=== PATIENT | male | born 1980 | race Two or more races ===

== ENCOUNTER 2022-01-16 11:24 | Inpatient (IN) | payer MEDICAID ==
[~2022-01-16] VITALS: Ht 175.3 cm; Wt 77.0 kg
[2022-01-16] MEDS ORDERED: LACTATED RINGER'S 1,000 ML IV ONE (11:45)
[2022-01-16] MEDS ORDERED: KETOROLAC TROMETH 30 MG/ML 1ML VIAL IV ONE (11:45)
[2022-01-16 12:28] LABS: Urine Bacteria NONE SEEN /hpf (None Seen); Urine Blood Negative /uL (Negative); Urine Mucus FEW (None Seen); Urine Specific Gravity 1.009 (1.001-1.035); Urine WBC 2 /hpf (0 - 3)
[2022-01-16 12:30] LABS: Basophils # (auto) 0.1 10 ^3/uL (0-0.2); Basophils % (auto) 0.9 % (0.0-2.0); Eosinophils # (auto) 0.2 10 ^3/uL (0-0.8); Eosinophils % (auto) 2.5 % (0.0-7.0); Hematocrit 45.6 % (41.0-53.0); Hemoglobin 15.7 g/dL (13.5-17.5); Lymphocytes # (auto) 1.5 10 ^3/uL (0.4-5.4); Lymphocytes % (auto) 16.8 % (10.0-50.0); Mean Corpuscular Hemoglobin 30.5 pg (28.0-32.0); Mean Corpuscular Hgb Conc. 34.4 g/dL (32.0-36.0); Mean Corpuscular Volume 88.6 fL (80.0-100.0); Monocytes # (auto) 0.7 10 ^3/uL (0-1.3); Monocytes % (auto) 7.7 % (0.0-12.0); Neutrophils # (auto) 6.4 10 ^3/uL (1.6-8.6); Neutrophils % (auto) 72.1 % (37.0-80.0); Nucleated Red Blood Cells % 0.1 %; Red Blood Cells 5.15 10^6/uL (4.5-5.90); Red Cell Distribution Width 13.2 % (11.8-14.3); White Blood Cell 8.9 10^3/uL (4.4-10.8)
[2022-01-16 12:49] LABS: Albumin 4.2 g/dL (3.4-5.0); Calcium 9.2 mg/dL (8.5-10.1); Potassium 4.2 mmol/L (3.5-5.1)
[2022-01-16 12:52] LABS: BUN/Creatinine Ratio 10.1
[2022-01-16 12:55] LABS: Bilirubin, Total 0.4 mg/dL (0.2-1.0); Total Protein 8.4 g/dL (6.4-8.2)
[2022-01-16] MEDS ORDERED: NITROGLYCERIN 0.4 MG SL TAB SL PRN (19:15)
[2022-01-16] MEDS ORDERED: MORPHINE SULFATE INJECTION 2 MG/ML SYRG IV PRN (19:15)
[2022-01-16] MEDS ORDERED: MORPHINE SULFATE 4 MG/ML SYR/VIAL IV PRN (19:15)
[2022-01-16] MEDS ORDERED: SODIUM CHLORIDE 0.9% 1,000 ML IV ONE (19:15)
[2022-01-16] MEDS ORDERED: FUROSEMIDE 20 MG/2 ML VIAL IV ONE (19:15)
[2022-01-16] MEDS ORDERED: MANNITOL 20% SOLN 100 gm/500ml 200 ML IV ONE ×2 (19:15→23:00)
[2022-01-16] MEDS: PROMETHAZINE HCL 25 MG/ML 1ML IV PRN (21:36)
[2022-01-16] MEDS: SODIUM CHLORIDE 0.9% 1,000 ML IV SCH (22:02)
[2022-01-17 05:00] VITALS: BP 139/94
[2022-01-17 06:36] LABS: Calcium 8.7 mg/dL (8.5-10.1)
[2022-01-17 06:38] LABS: BUN/Creatinine Ratio 11.7
[2022-01-17] MEDS: SODIUM CHLORIDE 0.9% 1,000 ML IV SCH ×3 (07:30→15:15)
[2022-01-17 09:00] VITALS: BP 147/102
[2022-01-17] MEDS: PROMETHAZINE HCL 25 MG/ML 1ML IV PRN (10:03)
[2022-01-17] MEDS: HYDROcodone-ACET 10/325MG TAB PO PRN ×2 (10:03→15:00)
[2022-01-17 11:33] VITALS: BP 147/102
[2022-01-17] MEDS ORDERED: TAM04C PO (12:56)
[2022-01-17] MEDS ORDERED: IBUP600T27 PO (12:56)
[2022-01-17 13:00] VITALS: BP 135/86
[2022-01-17 14:01] VITALS: BP 135/86
[2022-01-17 16:53] VITALS: BP 153/92
[2022-01-17] MEDS ORDERED: TAMSULOSIN HYDROCHLORIDE 0.4 MG CAP PO SCH (18:00)
== END 2022-01-17 17:32 | disposition home or self-care (01) | DRG 465 ==
LOC: ER 11:24 → OVERFLOW 19:04 → CENTRAL 22:40
PROVIDERS: ADMIT Hospitalist; ATTEND Hospitalist
DX: N20.2 Calculus of kidney with calculus of ureter (principal); N17.9 Acute kidney failure, unspecified; N21.0 Calculus in bladder; Z20.822 Contact with and (suspected) exposure to COVID-19; Z83.3 Family history of diabetes mellitus; Z82.49 Family history of ischemic heart disease and other diseases of the circulatory system; Z87.442 Personal history of urinary calculi; Z90.49 Acquired absence of other specified parts of digestive tract
CPT/HCPCS: 36415; 74018; 74176; 76775; 80048; 80053; 81001; 85025; 93005; 96361; 96374; 96375; G0378; J1885

== ENCOUNTER → 2022-02-27 | Day surgery (SDC) | payer MEDICAID ==
[2022-02-24 08:43] LABS: Basophils # (auto) 0.1 10 ^3/uL (0-0.2); Basophils % (auto) 1.8 % (0.0-2.0); Eosinophils # (auto) 0.2 10 ^3/uL (0-0.8); Hematocrit 43.1 % (41.0-53.0); Hemoglobin 15.5 g/dL (13.5-17.5); Lymphocytes # (auto) 1.6 10 ^3/uL (0.4-5.4); Lymphocytes % (auto) 22.8 % (10.0-50.0); Mean Corpuscular Hemoglobin 31.7 pg (28.0-32.0); Mean Corpuscular Hgb Conc. 35.9 g/dL (32.0-36.0); Mean Corpuscular Volume 88.1 fL (80.0-100.0); Monocytes # (auto) 0.6 10 ^3/uL (0-1.3); Monocytes % (auto) 8.7 % (0.0-12.0); Neutrophils # (auto) 4.5 10 ^3/uL (1.6-8.6); Neutrophils % (auto) 63.7 % (37.0-80.0); Red Blood Cells 4.89 10^6/uL (4.5-5.90); Red Cell Distribution Width 12.8 % (11.8-14.3)
[2022-02-24 08:44] LABS: Urine Bacteria NONE SEEN /hpf (None Seen); Urine Blood Negative /uL (Negative); Urine Specific Gravity 1.017 (1.001-1.035); Urine WBC <1 /hpf (0 - 3)
[2022-02-24 09:00] LABS: INR 1.01 (0.9-1.15); Partial Thromboplastin Time 28.8 sec (23.6-33.0)
[2022-02-24 09:45] LABS: Albumin 4.1 g/dL (3.4-5.0); Calcium 8.9 mg/dL (8.5-10.1)
[2022-02-24 09:51] LABS: BUN/Creatinine Ratio 14.5; Bilirubin, Total 0.4 mg/dL (0.2-1.0); Total Protein 8.1 g/dL (6.4-8.2)
[~2022-02-27] VITALS: Ht 175.3 cm; Wt 77.1 kg
[~2022-02-27] MED LIST: ACETAMINOPHEN IV 100 ML IV ONE; ALBUTEROL SULF 2.5 MG/0.5ML(0.5%) NEB SOLN NEB STA; ALBUTEROL SULF 2.5 MG/0.5ML(0.5%) NEB SOLN ONE; DexAMETHasone SOD PHOS 10MG/1ML VIAL INJ ONE; HYDROmorphone HCL 2 MG/ML VL/or syr IV PRN; IBUP600T27 PO; IPRATROPIUM BROM 0.5 MG/2.5ML INH SOL NEB STA; IPRATROPIUM BROM 0.5 MG/2.5ML INH SOL ONE; METOCLOPRAMIDE HCL 5MG/ml INJ 2ml VIAL IV PRN; MIDAZOLAM HCL 2MG/2ML 2ml VIAL (1mg/ml) ONE; MORPHINE SULFATE 4 MG/ML SYR/VIAL IV PRN; ONDANSETRON HCL 4 MG/2 ML VIAL ONE; PREGABALIN CAPSULE 75 MG CAP ONE; SODIUM CHLORIDE LOCK 10 ML ONE; ceFAZolin 1GM/50ML 100 ML IV ONE; fentaNYL CITRATE 100 MCG/2 ML VL ONE; hydrALAZINE HCL 20 MG/ML VL IV ONE; hydrALAZINE HCL 20 MG/ML VL ONE
[2022-02-27 14:00] VITALS: BP 141/83
== END | disposition home or self-care (01) ==
LOC: SUR 08:14
PROVIDERS: ATTEND Urology
DX: N20.0 Calculus of kidney (principal); N20.1 Calculus of ureter; Z90.49 Acquired absence of other specified parts of digestive tract; Z90.10 Acquired absence of unspecified breast and nipple; Z82.49 Family history of ischemic heart disease and other diseases of the circulatory system; Z83.3 Family history of diabetes mellitus; Z20.822 Contact with and (suspected) exposure to COVID-19
CPT/HCPCS: 36415; 50590; 71045; 80053; 81001; 85025; 85610; 85730; 87086; 94640; J0131; J0360; J0690; J1100; J1170; J2250; J2405; J2765; J3010; J7644; U0003